=== PATIENT | female | born 1995 | race African-American/Black ===

== ENCOUNTER 2019-08-10 21:19 | Observation (INO) | payer MEDICAID ==
[~2019-08-10] VITALS: Ht 170.2 cm; Wt 72.6 kg
[2019-08-10] MEDS ORDERED: PNV11TAB MT (22:04)
[2019-08-10] MEDS ORDERED: ALBU4TAB6 PO (22:05)
[2019-08-10] MEDS ORDERED: CEFAZOLIN 2,000 MG in DEXT 5% WATER 100 ML IV SCH (22:30)
[2019-08-10] MEDS ORDERED: LACTATED RINGERS 1,000 ML IV SCH (22:30)
== END 2019-08-10 23:40 | disposition home or self-care (01) ==
LOC: 8 EST LDRP 21:19
PROVIDERS: ADMIT Obstetrics & Gynecology; ATTEND Obstetrics & Gynecology
DX: O23.42 Unspecified infection of urinary tract in pregnancy, second trimester (principal); O26.892 Other specified pregnancy related conditions, second trimester; O36.8120 Decreased fetal movements, second trimester, not applicable or unspecified; Z3A.27 27 weeks gestation of pregnancy
CPT/HCPCS: 96365; 99281; G0378; J0690; J7060; 96360